=== PATIENT | male | born 1950 | race Caucasian/White ===

== ENCOUNTER 2021-01-11 11:02 | Outpatient (CLI) | payer OTHER | END 2021-01-11 11:17 | disposition home or self-care (01) | LOC: NUCLEAR 11:02 | DX: I10 Essential (primary) hypertension (principal); I65.23 Occlusion and stenosis of bilateral carotid arteries ==

== ENCOUNTER → 2021-01-11 | Outpatient (CLI) | payer OTHER | END | disposition home or self-care (01) | LOC: TOM 10:54 | DX: I10 Essential (primary) hypertension (principal) ==